=== PATIENT | female | born 1975 | race Caucasian/White ===

== ENCOUNTER 2025-04-09 20:29 | Emergency (ER) | payer BC ==
[~2025-04-09] VITALS: Ht 167.6 cm; Wt 69.0 kg
[2025-04-09 20:34] VITALS: O2SAT 100
[2025-04-09 21:44] LABS: BASOPHILS % 1.1 % (0.0-2.0); EOSINOPHILS % 1.8 % (0.0-5.0); HEMATOCRIT. 36.0 % (36.0-48.0); HEMOGLOBIN. 12.0 g/dL (12.0-16.0); LYMPHOCYTES % 27.0 % (20.0-50.0); MEAN PLATELET VOLUME 8.1 fl (7.4-10.4); MONOCYTES % 7.1 % (2.0-8.0); NEUTROPHILS % 63.0 % (40.0-76.0); PLATELET 226 x1000/uL (130-400); RED BLOOD CELL COUNT 3.97 mill/uL (4.2-5.4); RED CELL DISTRIBUTION WIDTH 13.8 % (11.6-14.6)
[2025-04-09 21:51] LABS: HCG SCREEN NEGATIVE
[2025-04-09 21:53] LABS: CREATININE 1.5 mg/dL (0.6-1.0)
[2025-04-09 21:54] LABS: TROPONIN I HIGH SENSITIVITY 4 ng/L (3.0-34); UREA NITROGEN BLOOD 24 mg/dL (9-23)
[2025-04-09 21:55] LABS: ASPARTATE AMINOTRANSFERASE 15 IU/L (<34); BILIRUBIN DIRECT 0.1 mg/dL (<=3.0)
[2025-04-09 21:56] LABS: BILIRUBIN TOTAL 0.4 mg/dL (0.1-1.0); PROTEIN TOTAL 6.7 g/dL (6.0-8.3)
[2025-04-09] MEDS: SODIUM CHLORIDE 0.9% 1,000 ML IV ONE (21:58)
[2025-04-09 22:56] VITALS: BP 120/61; PULSE 76; RESP 14; TEMP 36.9; O2SAT 100
== END 2025-04-09 23:00 | disposition home or self-care (01) ==
LOC: ER 20:29 → CMPBEDREQ 04-10 11:54
DX: R55 Syncope and collapse (principal); I10 Essential (primary) hypertension; F32.A Depression, unspecified
CPT/HCPCS: 99284; 96360; 80076; 80048; 84703; 83735; 85025; 84484; 36415; 93005; J7030